=== PATIENT | male | born 2005 | race Caucasian/White ===

== ENCOUNTER 2024-01-06 12:06 | Outpatient (AMB) | payer OTHER, SELFPAY ==
--- NOTE | 2024-01-06 12:29 | MHC.PC.OV ---
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 ?? Prior PCP:?Dr Glenn Nunez Last office visit/CPE:? Mar 2023 CPE Acute issue(s):? Est care ?? PMHx:? Denies PDD/Autism Spectrum /Aspbergers SurgHx:? None FHx:? Mom: Anxiety, HTN, Hashimotos. Dad: EtOH.. SocHx: Nonsmoker, None. PFSH Medical History (Updated 01/06/24 @ 13:03 by Marlon Pratt) PDD (pervasive developmental disorder) Family History (Updated 01/06/24 @ 12:32 by LYNNE Michel) Brother Substance abuse FH: mental illness Father AA (alcohol abuse) Social History (Updated 01/06/24 @ 12:32 by LYNNE Michel) Housing: House Patient Tobacco Use Status: Never used Tobacco e-Cigarette/Vaping Use: Never Used service: No Current occupational status: unemployed Current occupational exposures/hazards: No Cognitive needs: No Hearing needs: No Vision needs: No Questionnaire PHQ-9 Over the last 2 weeks, how often have you been bothered by any of the following problems? 1. Little interest or pleasure in doing things: not at all 2. Feeling down, depressed, or hopeless: not at all 3. Trouble falling or staying asleep, or sleeping too much: several days 4. Feeling tired or having little energy: not at all 5. Poor appetite or overeating: not at all 6. Feeling bad about yourself - or that you are a failure or have let yourself or your family down: not at all 7. Trouble concentrating on things, such as reading the newspaper or watching television: not at all 8. Moving or speaking so slowly that other people could have noticed. Or the opposite - being so fidgety or restless that you have been moving around a lot more than usual: not at all 9. Thoughts that you would be better off or of hurting yourself in some way: not at all Total score: 1 Depression Screening Interpretation: Negative Depression Screening Done: Yes 88609 - PHQ-9 Billing: Yes Source: Developed by Drs. Tito Abdi, Meghan Silva, Marquise Orozco and colleagues, with an educational edd from [employer]. Thrive Questionnaire Date Thrive assessed: 01/06/24 I am a: Patient What is your living situation today?: I have a steady place to live Within the past 12 months, did the food you bought not last and you didn't have the money to get more?: Never true Within the past 12 months, did you worry whether your food would run out before you got money to buy more?: Never true Do you have trouble paying for medicines?: No Do you have trouble getting transportation to medical appointments?: No Do you have trouble paying your heating and electricity bill?: No Do you have trouble taking care of your child, family member or friend?: No Do you have trouble with day-to-day activities such as bathing, preparing meals, shopping, managing finances, etc.?: No Are you currently unemployed and looking for a job?: Yes Are you interested in more education?: Yes Please select the resources that you would like help with: Education Currently or been in a relationship where the following occur: No concerns reported THRIVE Score: 0 AUDIT C Alcohol Use Questionnaire (AUDIT-C) 1. How often do you have a drink containing alcohol?: Never 3. How often do you have six or more drinks on one occasion?: Never Total Score: 0 JESS-7 AMB Questionnaire JESS-7 Date JESS - 7 assessed: 01/06/24 Feeling nervous, anxious, or on edge: 0 = Not at all Not being able to stop or control worryin = Not at all Worrying too much about different things: 0 = Not at all Trouble relaxin = Not at all Being so restless that it is hard to sit still: 0 = Not at all Becoming easily annoyed or irritable: 0 = Not at all Feeling afraid as if something awful might happen: 0 = Not at all Total JESS-7 score (0-4 normal; 5-9 mild; 10-14 moderate; 15-21 severe): 0 Source: Developed by Drs. Tito Abdi, Meghan Silva, Marquise Orozco and colleagues, with an educational edd from [employer]. JESS-7 Assessment Billing JESS-7 Assessment Tool: JESS-7 Assessment 13718 Physical exam (Primary Care) Vital Signs: Last Vital Signs Temp 98.3 F 01/06/24 12:35 Pulse 78 01/06/24 12:35 Resp 16 01/06/24 12:35 BP 110/60 01/06/24 12:35 Pulse Ox 96 01/06/24 12:35 Oxygen Delivery Method Room Air 01/06/24 12:35 BMI result Body Mass Index 27.7 Tobacco/Smoking Status: Tobacco use Status Tobacco use date assessed 01/06/24 01/06/24 12:38 Patient Tobacco Use Status Never used Tobacco 01/06/24 12:38 e-Cigarette/Vaping Use Never Used 01/06/24 12:38 PHQ-9: PHQ-9 Score PHQ-9: Total score 1 01/06/24 12:42 Depression Screening Interpretation: Negative Thrive Assessment: Date of Thrive Assessment Date Thrive assessed 01/06/24 01/06/24 12:38 Currently or been in a relationship where the following occur: No concerns reported Coding Level of Care Code New Pt Level 3 (44247) Diagnoses PDD (pervasive developmental disorder) F84.9 Autism spectrum F84.0 Aspergers' syndrome F84.5 Immunization counseling Z71.85 Laboratory exam ordered as part of routine general medical examination Z00.00 Additional Codes JESS-7 Assessment Billing - JESS-7 Assessment Tool: JESS-7 Assessment 20806 ([id number]) PHQ-9 - 64360 - PHQ-9 Billing: Yes ([id number]) Assessment & Plan Assessment & Plan (1) PDD (pervasive developmental disorder): Code(s): F84.9 - Pervasive developmental disorder, unspecified Category: Medical Plan: Stable (2) Autism spectrum: Code(s): F84.0 - Autistic disorder Category: Medical Plan: Stable (3) Aspergers' syndrome: Code(s): F84.5 - Asperger's syndrome Category: Medical Plan: Stable (4) Immunization counseling: Code(s): Z71.85 - Encounter for immunization safety counseling Category: Medical Plan: Advised?flu?shot?but?patient?declines?this?for?today (5) Laboratory exam ordered as part of routine general medical examination: Code(s): Z00.00 - Encounter for general adult medical examination without abnormal findings Category: Medical Plan: Check?labs Orders: Orders Microalbumin, Random (w Creat) Today I10 - Essential (primary) hypertension Lipid Panel Today Z00.00 - Encounter for general adult medical examination without abnormal findings UA and rflx microscopic Today Z00.00 - Encounter for general adult medical examination without abnormal findings Comprehensive [place]. Panel Fast Today Z00.00 - Encounter for general adult medical examination without abnormal findings TSH reflex Free T4 Today Z00.00 - Encounter for general adult medical examination without abnormal findings
[2024-01-06 12:35] VITALS: BP 110/60; PULSE 78; RESP 16; TEMP 36.8; O2SAT 96; BMI 27.7
== END 2024-01-06 13:05 | disposition home or self-care (01) ==
PROVIDERS: PCP Family Medicine; Visit Provider Family Medicine
DX: F84.9 Pervasive developmental disorder, unspecified (principal); F84.5 Asperger's syndrome; Z71.85 Encounter for immunization safety counseling

== ENCOUNTER → 2024-01-06 12:06 | Outpatient (BNVA) | payer OTHER, SELFPAY | PROVIDERS: PCP Family Medicine; Visit Provider Family Medicine | DX: F84.9 Pervasive developmental disorder, unspecified (principal); F84.0 Autistic disorder; F84.5 Asperger's syndrome; Z71.85 Encounter for immunization safety counseling | CPT/HCPCS: 96127 ==

== ENCOUNTER 2024-05-05 09:54 | Outpatient (REF) | payer OTHER, SELFPAY ==
[2024-05-05 12:12] LABS: Alanine Aminotransferase 33 U/L (0-40); Albumin Level 4.5 g/dL (3.5-5.0); Alkaline Phosphatase 81 U/L (39-117); Anion Gap 12 (12-20); Aspartate Amino Transferase 23 U/L (5-37); Bilirubin Total 0.9 mg/dL (0.0-1.0); Blood Urea Nitrogen 16 mg/dL (9-16); Calcium 9.7 mg/dL (8.4-10.2); Carbon Dioxide 26 mmol/L (22-29); Chloride 107 mmol/L (96-108); Cholesterol 140 mg/dL (<200); Estimated Glomerular Filt Rate > 60; Glucose Fasting 88 mg/dL (60-99); HDL Cholesterol 47 mg/dL (>40); LDL Cholesterol Calculated 80 mg/dL (<100); Potassium 3.7 mmol/L (3.3-5.1); Sodium 141 mmol/L (135-145); Triglycerides 69 mg/dL (<150)
[2024-05-05 12:43] LABS: TSH reflex Free T4 1.09 uIU/mL (0.32-4.0)
== END 2024-05-05 09:55 | disposition home or self-care (01) ==
LOC: HO.WFDLDS 09:54
PROVIDERS: Visit Provider Family Medicine
DX: Z00.00 Encounter for general adult medical examination without abnormal findings (principal); Z13.6 Encounter for screening for cardiovascular disorders
CPT/HCPCS: 36415; 80053; 80061; 84443

== ENCOUNTER 2024-05-10 08:04 | Outpatient (AMB) | payer OTHER, SELFPAY ==
--- NOTE | 2024-05-10 08:09 | A.OFFPC_ITS ---
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 Required: No Accompanied by: Mother Allergies No Known Allergies Allergy (Verified 01/06/24 12:30) Medication List - Last Reconciled 05/10/24 by Roseann Lua PA-C No Known Home Meds Tobacco use date assessed: 01/06/24 Dental Screening Dental Screen Date: 01/06/24 Did you have a dental visit in the last 12 months?: Yes Did you have a dental problem in the last 6 months where you did not have access to dental care?: No Was dental information given to patient?: Patient has dentist HPI cpe HPI Details Patient is a 19-year-old male with a significant past medical history of autism and Asperger's presenting today for a physical exam. He is a relatively new patient here and follows primarily with Dr. De La Rosa. Psych: His mother states today that with his diagnosis of autism and Asperger's that he does suffer from social anxiety at times and stresses about employment. He likes working full-time. He does follow with a therapist. No SI/HI.. He is active and tries to eat healthy. He exercises every day. He has been having right shoulder pain since February. He states it is actually getting a bit better but it is in the scapular area and at times radiates into the shoulder. No numbness, tingling or weakness. Sometimes it does radiate down to the elbow but for the most part it stays in the shoulder and is worse with certain exercises. He has recently tried to rest it and that has seemed to help it a lot. He is still active and working out every day at the gym. Has not noticed any difficulty lifting weights. This did start after working out at some point. No specific injury. He reports painless, flesh-colored, bumps over his toes. This has been going on for about a year and a half. There is no associated pain, joint erythema or swelling. He thinks it started after he worse shoes that he borrowed from a friend. He believes that they fit okay. They have been unchanged for the past year and a half. He does not like how it looks and he would like them removed. [facility] Medical History (Updated 05/10/24 @ 08:29 by Roseann Lua PA-C) PDD (pervasive developmental disorder) Family History (Updated 01/06/24 @ 12:32 by LYNNE Michel) Brother Substance abuse FH: mental illness Father AA (alcohol abuse) Social History (Updated 01/06/24 @ 12:32 by LYNNE Michel) Housing: House Alcohol intake: never Patient Tobacco Use Status: Never used Tobacco e-Cigarette/Vaping Use: Never Used Second Hand Smoke Exposure: Yes service: No Current occupational status: unemployed (working on getting GED) Current occupational exposures/hazards: No Cognitive needs: No Hearing needs: No Vision needs: No Questionnaire PHQ-9 Over the last 2 weeks, how often have you been bothered by any of the following problems? 1. Little interest or pleasure in doing things: not at all 2. Feeling down, depressed, or hopeless: not at all 3. Trouble falling or staying asleep, or sleeping too much: several days 4. Feeling tired or having little energy: not at all 5. Poor appetite or overeating: not at all 6. Feeling bad about yourself - or that you are a failure or have let yourself or your family down: not at all 7. Trouble concentrating on things, such as reading the newspaper or watching television: several days 8. Moving or speaking so slowly that other people could have noticed. Or the opposite - being so fidgety or restless that you have been moving around a lot more than usual: not at all 9. Thoughts that you would be better off or of hurting yourself in some way: not at all Total score: 2 Depression Screening Interpretation: Negative Depression Screening Done: Yes 69072 - PHQ-9 Billing: Yes Source: Developed by Drs. Tito Abdi, Meghan Silva, Marquise Orozco and colleagues, with an educational edd from [employer] Thrive Questionnaire Date Thrive assessed: 05/10/24 I am a: Patient What is your living situation today?: I have a steady place to live Within the past 12 months, did the food you bought not last and you didn't have the money to get more?: Never true Within the past 12 months, did you worry whether your food would run out before you got money to buy more?: Never true Do you have trouble paying for medicines?: No Do you have trouble getting transportation to medical appointments?: No Do you have trouble paying your heating and electricity bill?: No Do you have trouble taking care of your child, family member or friend?: No Do you have trouble with day-to-day activities such as bathing, preparing meals, shopping, managing finances, etc.?: No Are you currently unemployed and looking for a job?: Yes Are you interested in more education?: Yes Please select the resources that you would like help with: Job search/training and Education Currently or been in a relationship where the following occur: No concerns reported THRIVE Score: 0 AUDIT C Alcohol Use Questionnaire (AUDIT-C) 1. How often do you have a drink containing alcohol?: Never 2. How many drinks containing alcohol do you have on a typical day when you are drinking?: 1 or 2 3. How often do you have six or more drinks on one occasion?: Never Total Score: 0 JESS-7 AMB Questionnaire JESS-7 Date JESS - 7 assessed: 05/10/24 Feeling nervous, anxious, or on edge: 2 = More than half the days Not being able to stop or control worryin = Not at all Worrying too much about different things: 0 = Not at all Trouble relaxin = Nearly every day Being so restless that it is hard to sit still: 3 = Nearly every day Becoming easily annoyed or irritable: 0 = Not at all Feeling afraid as if something awful might happen: 0 = Not at all Total JESS-7 score (0-4 normal; 5-9 mild; 10-14 moderate; 15-21 severe): 8 Source: Developed by Drs. Tito Abdi, Meghan Silva, Marquise Orozco and colleagues, with an educational edd from [employer] JESS-7 Assessment Billing JESS-7 Assessment Tool: JESS-7 Assessment 25527 Physical exam (Primary Care) Vital Signs: Last Vital Signs Pulse 75 05/10/24 08:11 Resp 16 05/10/24 08:11 BP 116/58 L 05/10/24 08:11 Pulse Ox 98 05/10/24 08:11 Oxygen Delivery Method Room Air 05/10/24 08:11 BMI result Body Mass Index 26.7 Tobacco/Smoking Status: Tobacco use Status Tobacco use date assessed 01/06/24 05/10/24 08:10 Patient Tobacco Use Status Never used Tobacco 05/10/24 08:16 e-Cigarette/Vaping Use Never Used 05/10/24 08:16 PHQ-9: PHQ-9 Score PHQ-9: Total score 2 05/10/24 08:14 Depression Screening Interpretation: Negative Thrive Assessment: Date of Thrive Assessment Date Thrive assessed 05/10/24 05/10/24 08:18 Currently or been in a relationship where the following occur: No concerns re ported Const Orientation/consciousness: patient oriented x3 HENMT Ears: hearing grossly normal bilaterally and TM's normal bilaterally General nose exam: No nasal polyps present Face and sinus: Yes sinuses nontender Mouth: Normal oral and palatal mucosa present Eyes Pupils: Equal, round and reactive pupils present EOM: EOMs intact bilaterally Neck Neck: Yes full ROM and Yes no lymphadenopathy Thyroid: Thyroid normal Chest Chest palpation & inspection: normal inspection of the chest Resp Auscultation: clear to auscultation bilaterally Cardio Rate: regular rate Rhythm: regular rhythm Heart sounds: S1 normal heart sound present and S2 normal heart sound present Peripheral pulses: Peripheral pulses 2+ throughout GI Other: Soft, nontender Auscultation: normal bowel sounds Rectal Exam - Male: Yes deferred General: Yes no CVA tenderness Back/Spine/Pelvis Other: Nontender Back: no CVA tenderness Skin Other: There are flesh-colored, raised, lesions noted over the PIP joints over all the toes. It was noted over the DIPs of the great toes. Neuro General: patient oriented x3, gait normal, CN's II-XI intact bilaterally and deep tendon reflexes 2+ bilaterally Cranial nerves: Yes Equal, round and reactive pupils present Motor exam (neuro): 5/5 motor strength present throughout Sensory Exam: double simultaneous stimulation for sensation normal Coordination: [id number] test normal and Romberg test negative Extrem Other: The right shoulder is nontender to palpation. Full range of motion of the bilat eral upper extremities. There is slight discomfort noted to the right trapezius. Negative empty can test. Negative speed test. Numerical Control Lathe Operator strength 5/5 bilaterally. Radial pulses 2+ bilaterally. DTRs intact. General: Yes normal to inspection and Yes full ROM Psych Affect: normal affect Attitude: cooperative Thought process: Normal thought process present Thought content: Normal thought content present Insight: Good insight present (Psych) Judgement: Good judgement present (Psych) Results Reviewed Results Reviewed: Laboratory Tests 05/05/24 09:55 Sodium 141 Potassium 3.7 Chloride 107 Carbon Dioxide 26 Anion Gap 12 BUN 16 Creatinine 0.77 Estimated GFR > 60 Fasting Glucose 88 Calcium 9.7 Total Bilirubin 0.9 AST 23 ALT 33 Alkaline Phosphatase 81 Total Protein 8.0 Albumin 4.5 Triglycerides 69 Cholesterol 140 LDL Cholesterol, Calc 80 HDL Cholesterol 47 TSH 1.09 Coding Level of Care Code Est Pt Prev Care 18-39y(74546) Diagnoses Routine general medical examination at a health care facility Z00.00 Right shoulder pain M25.511 Skin lesion of foot L98.9 Additional Codes PHQ-9 - 05203 - PHQ-9 Billing: Yes ([id number]) JESS-7 Assessment Billing - JESS-7 Assessment Tool: JESS-7 Assessment 87600 ([id number]) Assessment & Plan Assessment & Plan (1) Routine general medical examination at a health care facility: Code(s): Z00.00 - Encounter for general adult medical examination without abnormal findings Plan: Health maintenance reviewed. Labs reviewed today with patient. (2) Right shoulder pain: Code(s): M25.511 - Pain in right shoulder Category: Medical Plan: Referral to physical therapy. I have encouraged massage therapy for the trapezius muscle and advised him to work on stretching. X-ray ordered as well. (3) Skin lesion of foot: Code(s): L98.9 - Disorder of the skin and subcutaneous tissue, unspecified Category: Medical Plan: Referral to [facility]. Phone number and address provided. Orders: Orders XR shoulder RT min 2V Today M25.511 - Pain in right shoulder PT Evaluation and Treatment Today M25.511 - Pain in right shoulder Referrals Dermatology Referral L98.9 - Disorder of the skin and subcutaneous tissue, unspecified
[2024-05-10 08:11] VITALS: BP 116/58; PULSE 75; RESP 16; O2SAT 98; BMI 26.7
--- OUTSIDE RECORDS SUMMARY | 2024-05-10 08:16 | XMS_ITS | Encounter Summary ---
Author Organization [facility] Address [address] [place] [phone] Phone Care Team Providers Care Aws Software Development Engineer Name Role Phone Tito Elizabeth MD Primary Care Provider [phone] Encounter Details Date Type Department Care Team (Late st Contact Info) Description 10/01/2016 Conversion Encounter [facility] - [address] [address] Social History Tobacco Use Types Packs/Day Years Used Date Smoking Tobacco: Never Assessed Sex and Gender Information Value Date Recorded Sex Assigned at Male 03/10/2023 10:50 AM EST Legal Sex Male 6:26 PM EDT Gender Identity Male 03/10/2023 10:50 AM EST Sexual Orientation Straight 03/10/2023 10 :50 AM EST documented as of this encounter Plan of Treatment Not on file documented as of this encounter Visit Diagnoses Not on filedocumented in this encounter Care Teams Aws Software Development Engineer Relationship Specialty Start Date End Date Tito Elizabeth MD [address] [place] [address] PCP - General 06/23/17 01/03/24 documented as of this encounter
--- OUTSIDE RECORDS SUMMARY | 2024-05-10 08:16 | XMS_ITS | Encounter Summary ---
Author Organization [facility] Address [address] [place] [phone] Phone Care Team Providers Care Computer Processing Scheduler Name Role Phone Tito Elizabeth MD Primary Care Provider Encounter Details Date Type Department Care Team (Late st Contact Info) Description 07/04/2017 Conversion [facility]counter [facility] [address] [place] [address] Tito Elizabeth MD [address] [place] [address] Social History Tobacco Use Types Packs/Day Years [...] on filedocumented in this encounter Care Teams Computer Processing Scheduler Relationship Specialty Start Date End Date Tito Elizabeth MD [address] [place] [address] PCP - General 06/23/17 01/03/24 documented as of this encounter
--- OUTSIDE RECORDS SUMMARY | 2024-05-10 08:16 | XMS_ITS | Clinical Summary ---
Author Organization [facility] Address [address] [place] [id number] Phone Care Team Providers Care Assurance Manager Insurance Name Role Phone Unavailable Primary Care Provider Unavailabl e Allergies Active Allergy Reactions Criticality Noted Date Comments Amoxicillin Hives Medications clindamycin 1 % gel Apply topically 2 (two) times a day. 2 0 Active Active Problems Problem Noted Date Diagnosed Date Weight loss 03/10/2023 Assessment & Plan (03/10/2023 12:25 PM EST): Large drop in BMI. He states this has been slow since 2020 and that his meena has been stable the last 4-6 months. He denies trying to lose more weight. Dicussed broad differential for weight loss. No other red flag signs in history. If weight continues to drop or go down he states he will return. ADHD, predominantly inattentive type 05/11/2017 Assessment & Plan (04/04/2020 2:30 PM EST): Doing well with virtual work. Assessment & Plan (04/05/2019 5:38 PM EST): Not interested in medication. Doing well. Anxiety 05/11/2017 Overview (02/19/2019): Has been taking 10 mg Fluoxetine. Mom has seen a huge improvement since starting. Has been able to go to family gathering. [place]. Large groups. Sergio feels like it could work 01/02 increased dose to 20 mg - never had refill No side effects. ?? Never started with [facility]. Still on wait list. Mom has a connection with [facility] Car[facility]. Mom has a connection with [facility] and is thinking of calling them Assessment & Plan (03/10/2023 12:22 PM EST): States he has been doing well. Dicussed trying for drivers license. Assessment & Plan (04/04/2020 2:30 PM EST): No recent issues and handling changes with pandemic well. Assessment & Plan (04/05/2019 5:42 PM EST): Doing well without meds. Mom can call back to arrange apt with [facility]. Assessment & Plan (11/15/2017 10:02 AM EDT): Fluoxetine has jose clearly helping Sergio. Will trial increase dose Fluoxetine to 20 mg to see if it can help more. Mom will watch for any side effects and let me know. Mom will give [facility] Car[facility] a call again to check on status and also pursue [facility] if needed. PDD (pervasive developmental disorder) 7 Resolved Problems Problem Noted Date Diagnosed Date Resolved Date Influenza vaccination declined by caregiver 04/05/2019 04/04/2020 Overview (04/05/2019): 04/06 Pediatric body mass index (B GA) of greater than or equal to 95th percentile for age 0304/26/2017 03/10/2023 Immunizations Immunization Administration Dates Next Due DTaP 07/05/2008, 5,2003,07/15,2003 HPV Vaccine 9 Valent 05/11/2017,08/28/2015 Hep A, ped/adol 04/04/2020,05/11/2017 Hep B, ped/adol 2003,2003,2003 Hib (PRP-T) 05/20/2004, 4,2003,04/16 IPV 07/05/2008, 5,2003,04/16 Influenza, injectable, quadrivalent 11/28/2011,1 Influenza, injectable, quadr ivalent, preservative free 11/20/2022,11/29/2021,12/16/2020,11/27,11/20/2017,11/10/2014,12/20/2012 Influenza, injectable, trivalent 11/06/2004,06/2003 MMR 07/05/2008,05/20/2004 Meningococcal Conj (Menactra) MCV4P 03/29/2019,0 04/27/2014 Pneumococcal Conjugate 02/19/2004,2003,2003,04/16 Tdap 04/27/2014 Varicella 07/05/2008,02/19/2004 Family History Medical History Relation Name Comments Language disorder Brother 2 Feroz No Known Problems Father Hypertension Maternal Grandfather Dementia Maternal Grandmother Diabetes type II Maternal Grandmother Heart attack Maternal Grandmother Macular degeneration Maternal Grandmother Roxanne's thyroiditis Mother Hypertension Mother No Known Problems Paternal Grandfather No Known Problems Paternal Grandmother Relation Name Status Comments Brother 1 Ari Alive Brother 2 Feroz Alive Brother 3 Alive Brother: Migrai kyle, ADD/ADHD, Asthma, Asthma, Alive and well, Alive and well Brother 4 Alive Brother: Migrai kyle, ADD/ADHD, Asthma, Asthma, Alive and well, Alive and well Father Alive Father: Alive a nd well Father's Brother Alive Father's Sister Alive Maternal Grandfather Maternal Grandmother Mother Alive Mother: Hyperth yroidism Other Family history of Diabetes mellitus, No family history of Deafness, No family history of Sudden /GA under age 55, Family history of ADD/ADHD, No family history of Developmental dislocation of hip, No family history of Strabismus/amblyopia, No family history of Elevated cholesterol, Family history of Autism, Family history of Obesity, Family history of Migraines, No family history of Seizure disorder, Family history of Asthma Paternal Grandfather Alive Paternal Grandmother Alive Social History Tobacco Use Types Packs/Day Years Used Date Smoking Tobacco: Never Assessed Hunger/Food Answer Date Recorded In the last 12 months, did y ou or your family ever eat less than you felt you should because there wasn't enough money for food? No 03/10/2023 Stable Housing Answer Date Recorded Are you worried that in the next 2 months you may not have stable housing? No 03/10/2023 Transportation Concerns Answer Date Rec orded In the last 12 months, have you or your family ever had to go without healthcare because you didn't have a way to get there? No 03/10/2023 Hazards in Home Answer Date Recorded Think about the place you li ve. Do you have problems with any of the following? Pests (mice or roaches), mold, no/not working smoke detectors, water leaks, no window guards. No 2023 Financing Utilities Answer Date Recorde d In the last 12 months, has t he electric, gas, oil, or water company threatened to shut off your services in your home? No 03/10/2023 Safety at Home Answer Date Recorded Are you or your family worried about feeling saf e in your home? No 03/10/2023 Outside Support Answer Date Recorded Do you feel that you need mo re support from other people or programs to help you care for yourself or your family? No 03/10/2023 Understanding Health Concerns Answer Da te Recorded Do you need help understandi ng your or your child's healthcare needs (diagnosis, medications, plan, etc.)? No 03/10/2023 Financing Health Concerns Answer Date R ecorded In the last 12 months, was t here a time when your child needed to see a doctor or get medications or supplies but could not because of cost? No 03/10/2023 Missing School or Work Answer Date Sampson rded Did you or your child miss s chool or work because of a health problem that could have been avoided? No 03/10/2023 Sex and Gender Information Value Date Recorded Sex Assigned at Male 03/10/2023 10:50 AM EST Legal Sex Male 6:26 PM EDT Gender Identity Male 03/10/2023 10:50 AM EST Sexual Orientation Straight 03/10/2023 10 :50 AM EST Last Filed Vital Signs Vital Sign Reading Time Taken Comments Blood Pressure 118/78 03/10/2023 10:27 AM EST Pulse 105 02/17/2017 12:00 AM EST Temperature 36.1 ??C (97 ??F) 05/03/2020 1:21 PM EDT Respiratory Rate - - Oxygen Saturation 98% 02/17/2017 12:00 AM EST Inhaled Oxygen Concentration - - Weight 73.5 kg (162 lb) 03/10/2023 10:27 AM EST Height 171 cm (5' 7.32 ) 03/10/2023 10:27 AM EST Body Mass Index 25.13 03/10/2023 10:27 AM EST Plan of Treatment Health Maintenance Due Date Last Done Comments Men B Vaccine (1 of 2 - Standard) 2019 Influenza Vaccines (#1) 2023 11/21/19 23, 11/29/2021, 12/16/2020, Additional history exists COVID-19 Vaccine (4 - 2023-2 5 season) 2023 02/04/2021, 05/29/2020, 05/08/2020 DTaP,Tdap,and Td Vaccines (7 - Td or Tdap) 04/27/2024 04/27/2014, 07/05/2008, 11/06/2004, Additional history exists Hepatitis B Vaccines Completed 2003, 2003, 2003 Pneumococcal Vaccine Completed 02/19/2004, 2003, 2003, Additional history exists HIB Vaccines Completed 05/20/2004, 08/2003, 2003, Additional history exists IPV Vaccines Completed 07/05/2008, 10/17, 2003, Additional history exists MMR Vaccines Completed 07/05/2008, 05/20/2004 Varicella Vaccines Completed 07/05/2008, 02/19/2004 HPV Vaccines Completed 05/11/2017, 08/28/2015 Meningococcal Vaccine Completed 03/29/2019, 015 Hepatitis A Vaccines Completed 04/04/2020, 05/12/19 18 Insurance [facility] POS [facility] POS
--- OUTSIDE RECORDS SUMMARY | 2024-05-10 08:16 | XMS_ITS | Encounter Summary ---
Author Organization [facility] Address [address] [place] [id number] Phone Care Team Providers Care Imagery Analyst Name Role Phone Tito Elizabeth MD Primary Care Provider [phone] Reason for Visit * Reason Comments Med Refill Encounter Details Date Type Department Care Team (Late st Contact Info) Description 07/30/2017 [facility]ill [facility] [address] [address] Tito Elizabeth MD [address] [place] [id number] Acne vulgaris (Primary Dx) Social History Tobacco Use Types Packs/Day Years Used Date Smoking Tobacco: Never Assessed Sex and Gender Information Value Date Recorded Sex Assigned at Male 03/10/2023 10:50 AM EST Legal Sex Male 6:26 PM EDT Gender Identity Male 03/10/2023 10:50 AM EST Sexual Orientation Straight 03/10/2023 10 :50 AM EST documented as of this encounter Miscellaneous Notes * Telephone Encounter - Tito Elizabeth MD - 08/02/2017 8:37 AM EDT Prescriptions reviewed and eprescribed to pharmacy * Telephone Encounter - Marleni Cally - 08/01/2017 8:15 AM EDT Last [facility] 04/26/17 Last refill 08/28/15 documented in this encounter Plan of Treatment Not on file documented as of this encounter Visit Diagnoses Diagnosis Acne vulgaris- Primary Other acne documented in this encounter Care Teams Imagery Analyst Relationship Specialty Start Date End Date Tito Elizabeth MD [address] [place] [address] PCP - General 06/23/17 01/03/24 documented as of this encounter
--- OUTSIDE RECORDS SUMMARY | 2024-05-10 08:16 | XMS_ITS | Encounter Summary ---
Author Organization [facility] Address [address] [place] [phone] Phone Care Team Providers Care Site Director Name Role Phone Tito Elizabeth MD Primary Care Provider [phone] Encounter Details Date Type Department Care Team (Late st Contact Info) Description 03/27/2009 Documentation [facility] [address] [place] [address] Family Medicine, Physician [address] [id number] Social History Tobacco Use Types Packs/Day Years [...] on filedocumented in this encounter Care Teams Site Director Relationship Specialty Start Date End Date Tito Elizabeth MD [address] [place] [address] PCP - General 06/23/17 01/03/24 documented as of this encounter
== END 2024-05-10 08:38 | disposition home or self-care (01) ==
PROVIDERS: PCP Family Medicine; Visit Provider Physician Assistant
DX: Z00.00 Encounter for general adult medical examination without abnormal findings (principal); M25.511 Pain in right shoulder; L98.9 Disorder of the skin and subcutaneous tissue, unspecified

== ENCOUNTER → 2024-05-10 08:04 | Outpatient (BNVA) | payer OTHER, SELFPAY | PROVIDERS: PCP Family Medicine; Visit Provider Physician Assistant | DX: Z00.01 Encounter for general adult medical examination with abnormal findings (principal); M25.511 Pain in right shoulder; L98.9 Disorder of the skin and subcutaneous tissue, unspecified | CPT/HCPCS: 96127 ==